=== PATIENT | female | born 1970 | race African-American/Black ===

== ENCOUNTER 2018-04-08 12:42 | Emergency (ER) | payer MEDICAID ==
[~2018-04-08] VITALS: Ht 154.9 cm; Wt 61.0 kg
[~2018-04-08 12:42] MED LIST: FLUO10TA3; PROZAC; ZYPREXA
[2018-04-08] MEDS ORDERED: KETOROLAC 60MG/2ML VIAL IM ONE (17:30)
[2018-04-08 17:31] VITALS: BP 155/84
== END 2018-04-08 18:38 | disposition home or self-care (01) ==
LOC: ER 12:42
DX: M25.562 Pain in left knee (principal); R03.0 Elevated blood-pressure reading, without diagnosis of hypertension
CPT/HCPCS: 73562; 81025; 96372; 99284; J1885; L1830

== ENCOUNTER 2022-11-26 09:45 | Emergency (ER) | payer MEDICAID ==
[~2022-11-26] VITALS: Ht 154.9 cm; Wt 58.0 kg
[~2022-11-26 09:45] MED LIST changes: +ASPI-1497 PO; +ATOR10TA69 PO; +CHOL400D7 PO; -FLUO10TA3; +FLUO10TA53; +IBUP-2028 MT; +P50 MT; +VALA10002 MT
[2022-11-26 09:53] VITALS: BP 129/64
== END 2022-11-26 10:33 | disposition home or self-care (01) ==
LOC: ER 09:57
DX: M77.11 Lateral epicondylitis, right elbow (principal); Z98.890 Other specified postprocedural states; Z90.710 Acquired absence of both cervix and uterus
CPT/HCPCS: 99281

== ENCOUNTER 2024-07-09 18:48 | Emergency (ER) | payer MEDICAID ==
[~2024-07-09] VITALS: Ht 154.9 cm; Wt 56.0 kg
[~2024-07-09 18:48] MED LIST changes: +FLUO10TA44; -FLUO10TA53
[2024-07-09 18:56] VITALS: O2SAT 99
[2024-07-09] MEDS ORDERED: CIPHCO RIGHT EAR (20:02)
[2024-07-09 20:45] VITALS: BP 98/68; PULSE 69; RESP 16; TEMP 36.66960; O2SAT 99
== END 2024-07-09 20:46 | disposition home or self-care (01) ==
LOC: ER 18:48
DX: H60.91 Unspecified otitis externa, right ear (principal); E78.5 Hyperlipidemia, unspecified; K21.9 Gastro-esophageal reflux disease without esophagitis; Z90.710 Acquired absence of both cervix and uterus; Z79.899 Other long term (current) drug therapy; Z98.890 Other specified postprocedural states
CPT/HCPCS: 99283